=== PATIENT | female | born 1990 | race Caucasian/White ===

== ENCOUNTER 2016-08-21 18:08 | Emergency (ER) | payer SELFPAY ==
[~2016-08-21] VITALS: Ht 170.2 cm; Wt 68.3 kg
[~2016-08-21 18:08] MED LIST: ADVIN25/60 INH; ALBUAER2 INH; BUSP15TA70 PO; MONT1TAB3 PO; PXL20 PO; RMRS/45 PO
[2016-08-21 18:11] VITALS: TEMP 36.5; Ht 170.2 cm; Wt 68.3 kg
[2016-08-21] MEDS ORDERED: SODIUM CHLORIDE 0.9% 1000ML 2,000 ML IV STA (18:22)
[2016-08-21] MEDS ORDERED: ONDANSETRON INJ 2 MG/ML 2 ML VIAL IV STA (18:22)
[2016-08-21] MEDS ORDERED: OXYMETAZOLINE HCL 0.05% NA SPR 15 ML BTL NAE ONE (18:30)
--- NOTE | 2016-08-21 18:32 | EMERGENCY ROOM VISIT NOTE ---
History Report prepared by Daylin: Aurelia Marks Under the Supervision of: Dr. Carina Walker M.D. First contact with patient: 18:17 Chief Complaint: FLU LIKE SX Stated Complaint: HEAD COLD History of Present Illness The patient is a 26 year old female who presents to the Emergency Room with complaints of worsening flu-like symptoms that started two and a half weeks ago. She was unable to relieve her symptoms with Mucinex and Sudafed. The patient started experiencing sinus congestion first and then she started to experience nausea, vomiting, and diarrhea two days ago. She states that she hasn 't measured her temperature but she states that she has been feeling cold. She is also experiencing shortness of breath and states that she used her friend's breathing treatments because she ran out of her inhalers. The patient had multiple sick contacts recently. The patient's last normal menstrual period was in the end of June and she is unsure of if she is . She states that she took at-home tests but they were all inconclusive. Source of History: patient Onset: two and a half weeks ago Position: other (generalized) Quality: other (flu-like symptoms) Timing: worsening Associated Symptoms: + SOB, + chills, + diarrhea, + nausea, + vomiting Note: sinus congestion Review of Systems See HPI for pertinent positives & negatives. A total of 10 systems reviewed and were otherwise negative. Past Medical & Surgical Medical Problems: (1) Acute asthma exacerbation (2) Acute tracheobronchitis (3) Anemia due to blood loss (4) Asthma (5) Asthma exacerbation (6) Asthmatic bronchitis (7) Bronchitis (8) DRUG ABUSE NEC-UNSPEC (9) Endometritis following delivery (10) Fall (11) Gestational age, 21 weeks (12) Heroin overdose (13) Heroin overdose (14) Hypoxia (15) Ingested substance, unknown drug (16) Labor (17) Laryngitis (18) Odontalgia (19) Pain, dental (20) Pain, dental (21) (22) (23) , PREVIA, DISCHARGE (24) Second trimester bleeding (25) Threatened Surgical Problems: (1) Cholecystectomy (2) History of dilatation and curettage (3) History of wisdom tooth extraction Family History Cancer Diabetes mellitus FH: heart disease Hypertension Kidney disease Kidney stones Seizures Social History Smoking Status: Current Every Day Smoker Alcohol Use: none Drug Use: heroin, marijuana Marital Status: in relationship Housing Status: lives with significant other Occupation Status: employed Current/Historical Medications Scheduled Amoxicillin & Pot Clavulanate (Augmentin 875-125 mg), 875 MG PO BID Multiple Vitamins W/ Minerals (Womens One Daily), 1 TAB PO DAILY Quetiapine Fumarate (Seroquel), 1 TAB PO DAILY Scheduled PRN Pseudoephedrine Hcl (Sudafed), 60 MG PO UD PRN for Nasal Congestion Pseudoephedrine-Guaifenesin (Mucinex D), 1 TAB PO Q12 PRN for Cold/Sinus Symptoms Allergies Coded Allergies: BEE STING (Verified Allergy, Severe, SHORTNESS OF BREATH, 02/12/16) Cat Dander (Verified Allergy, Mild, ITCHY EYES, 02/12/16) Grass (Verified Allergy, Mild, RASH, 02/12/16) Molds and Smuts (Verified Allergy, Mild, RASH, 02/12/16) POLLEN (Verified Allergy, Mild, RASH, 02/12/16) Physical Exam Vital Signs Date Time Temp Pulse Resp B/P Pulse Ox O2 Delivery O2 Flow Rate FiO2 08/21/16 20:38 08/21/16 20:37 95 18 131/80 96 Room Air 08/21/16 18:11 36.5 124 18 125/76 98 Room Air Physical Exam Vital signs reviewed. General: Well-appearing female, in no significant distress. HEENT: No scleral icterus, PERRLA, neck supple. Atraumatic. Cardiovascular: Mildly tachycardic rate and regular rhythm, no extra sounds. Pulmonary: Clear to auscultation bilaterally, normal work of breathing. Abdomen: Soft, nontender, nondistended, positive bowel sounds. Musculoskeletal: Atraumatic, no peripheral edema. Neurologic: Patient awake alert and oriented x 3, full strength in all 4 extremities. Cranial nerves 2 through 12 grossly intact. Skin: Warm, dry, no rash Medical Decision & Procedures Laboratory Results 08/21/16 18:56 Red Blood Count 4.14, Mean Corpuscular Volume 91.5, Mean Corpuscular Hemoglobin 30.4, Mean Corpuscular Hemoglobin Concent 33.2, Mean Platelet Volume 11.4, Neutrophils (%) (Auto) 33.8, Lymphocytes (%) (Auto) 48.1, Monocytes (%) (Auto) 14.2, Eosinophils (%) (Auto) 3.1, Basophils (%) (Auto) 0.6, Neutrophils # (Auto ) 2.16, Lymphocytes # (Auto) 3.08, Monocytes # (Auto) 0.91, Eosinophils # (Auto ) 0.20, Basophils # (Auto) 0.04 08/21/16 18:56 Test 08/21/16 18:56 White Blood Count 6.40 K/uL (4.8-10.8) Red Blood Count 4.14 M/uL (4.2-5.4) Hemoglobin 12.6 g/dL (12.0-16.0) Hematocrit 37.9 % (37-47) Mean Corpuscular Volume 91.5 fL (80-100) Mean Corpuscular Hemoglobin 30.4 pg (25-34) Mean Corpuscular Hemoglobin Concent 33.2 g/dl (32-36) Platelet Count 287 K/uL (130-400) Mean Platelet Volume 11.4 fL (7.4-10.4) Neutrophils (%) (Auto) 33.8 % Lymphocytes (%) (Auto) 48.1 % Monocytes (%) (Auto) 14.2 % Eosinophils (%) (Auto) 3.1 % Basophils (%) (Auto) 0.6 % Neutrophils # (Auto) 2.16 K/uL (1.4-6.5) Lymphocytes # (Auto) 3.08 K/uL (1.2-3.4) Monocytes # (Auto) 0.91 K/uL (0.11-0.59) Eosinophils # (Auto) 0.20 K/uL (0-0.5) Basophils # (Auto) 0.04 K/uL (0-0.2) RDW Standard Deviation 44.9 fL (36.4-46.3) RDW Coefficient of Variation 13.5 % (11.5-14.5) Immature Granulocyte % (Auto) 0.2 % Immature Granulocyte # (Auto) 0.01 K/uL (0.00-0.02) Urine Color YELLOW Urine Appearance CLOUDY (CLEAR) Urine pH >= 9.0 (4.5-7.5) Urine Specific [place] 1.026 (1.000-1.030) Urine Protein NEG (NEG) Urine Glucose (UA) NEG (NEG) Urine Ketones NEG (NEG) Urine Occult Blood NEG (NEG) Urine Nitrite NEG (NEG) Urine Bilirubin NEG (NEG) Urine Urobilinogen NEG (NEG) Urine Leukocyte Esterase TRACE (NEG) Urine WBC (Auto) 5-10 /hpf (0-5) Urine RBC (Auto) 0-4 /hpf (0-4) Urine Hyaline Casts (Auto) 1-5 /lpf (0-5) Urine Epithelial Cells (Auto) >30 /lpf (0-5) Urine Bacteria (Auto) 1+ (NEG) Urine Renal Epithelial Cells 5-10 /lpf (0-5) Anion Gap 10.0 mmol/L (3-11) Est Creatinine Clear Calc Drug Dose 105.4 ml/min Estimated GFR () 120.8 Estimated GFR (Non- 104.2 BUN/Creatinine Ratio 14.9 (10-20) Calcium Level 8.5 mg/dl (8.5-10.1) Magnesium Level 2.1 mg/dl (1.8-2.4) Total Bilirubin < 0.1 mg/dl (0.2-1) Direct Bilirubin < 0.1 mg/dl (0-0.2) Aspartate Amino Transf (AST/SGOT) 25 U/L (15-37) Alanine Aminotransferase (ALT/SGPT) 37 U/L (12-78) Alkaline Phosphatase 74 U/L (45-117) Total Protein 6.8 gm/dl (6.4-8.2) Albumin 3.4 gm/dl (3.4-5.0) Human Chorionic Gonadotropin, Qual NEG (NEG) Date/Time Source Procedure Growth Status 08/21/16 18:56 Urine , Clean Catch Urine Culture - Final THREE TYPES OF ORGANSIMS PRESENT, ALL... Complete Laboratory results per my review. Medications Administered Medications (Trade) Dose Ordered Sig/Irving Route Start Time Stop Time Status Last Admin Dose Admin Sodium Chloride (Nss 1000ml) 2,000 ml @ 999 mls/hr Q2H1M STAT IV 08/21/16 18:22 08/21/16 20:22 DC 08/21/16 19:06 999 MLS/HR Oxymetazoline HCl (Afrin 0.05% Nasal Amigo) 2 sprays NOW ONCE BLAISE 08/21/16 18:30 08/21/16 18:31 DC 08/21/16 19:03 2 SPRAYS Ondansetron HCl (Zofran Inj) 4 mg NOW STAT IV 08/21/16 18:22 08/21/16 18:24 DC 08/21/16 19:04 4 MG Amoxicillin/ Clavulanate Potassium (Augmentin Tab) 875 mg ONE ONCE PO 08/21/16 20:15 08/21/16 20:16 DC 08/21/16 20:30 875 MG Ondansetron HCl (ZOFRAN ODT 4MG Home Pack) 1 homepack UD ONCE PO 08/21/16 20:15 08/21/16 20:16 DC 08/21/16 20:30 1 HOMEPACK ED Course 1820: Past medical records reviewed. The patient was evaluated in room B6. A complete history and physical examination was performed. 1821: Ordered Zofran 4 mg IV, Sodium Chloride 2000 ml @ 999 mls/hr IV 1830: Ordered Oxymetazoline HCl 2 sprays BLAISE 2004: Upon reevaluation, the patient appeared to have improvement of her symptoms. I discussed findings with her. She verbalized agreement of the treatment plan. She was discharged home. 2015: Ordered Ondansetron HCl 1 homepack PO, Augmentin Tab 875 mg PO Medical Decision The patient is a 26 year old female who presents to the Emergency Room with complaints of worsening flu-like symptoms that started two and a half weeks ago. Differentials include viral illness, dehydration, sinusitis, foodborne illness, . This patient was evaluated and appeared to be in no significant distress. IV access was obtained and laboratory work was drawn. The patient was hydrated with normal saline solution, given IV Zofran for nausea. Patient was given Afrin nasal spray for congestion. Laboratory work is fairly unrevealing. Patient's test is negative. On reevaluation, the patient is complaining of sinus pressure. She was encouraged to use Afrin as needed for congestion. She was started on Augmentin 10 days for sinusitis. Patient will follow-up with her primary care physician this week for reevaluation return to the ER for worsening of symptoms or any medical concerns. Impression Primary Impression: Sinusitis Additional Impression: Nausea and vomiting Scribe Attestation The scribe's documentation has been prepared under my direction and personally reviewed by me in its entirety. I confirm that the note above accurately reflects all work, treatment, procedures, and medical decision making performed by me. Departure Information Dispostion Home / Self-Care Prescriptions Amoxicillin & Pot Clavulanate (Augmentin 875-125 mg) 1 Tab Tab 875 MG PO BID for 10 Days, #20 TAB Prov: Carina Walker M.D. 08/21/16 Referrals No Doctor, Assigned (PCP) Forms HOME CARE DOCUMENTATION FORM, IMPORTANT VISIT INFORMATION Patient Instructions My [facility] Additional Instructions Diagnosis: Sinusitis, nausea and vomiting Zofran 4 mg ODT every 6 hours as needed for nausea. Augmentin 875 mg twice daily for 10 days. Drink plenty of clear fluids. Advance diet slowly as tolerated. Follow-up with your physician this week for reevaluation and return to the ER for worsening of symptoms or any medical concerns. Problem Qualifiers Primary Impression: Sinusitis Sinusitis location: maxillary Chronicity: acute Recurrence: non-recurrent Qualified Codes: J01.00 - Acute maxillary sinusitis, unspecified Additional Impression: Nausea and vomiting Vomiting type: unspecified Vomiting Intractability: non-intractable Qualified Codes: R11.2 - Nausea with vomiting, unspecified
[2016-08-21 19:12] LABS: BASO % 0.6 %; BASO ABS # 0.04 K/uL (0-0.2); COMPLETE YES; EOS % 3.1 %; HEMATOCRIT 37.9 % (37-47); IG% 0.2 %; LYMPH % 48.1 %; LYMPH ABS # 3.08 K/uL (1.2-3.4); MEAN CELL VOLUME 91.5 fL (80-100); MEAN CORPUSCULAR HEMOGLOBIN 30.4 pg (25-34); MEAN CORPUSCULAR HGB CONC 33.2 g/dl (32-36); MEAN PLATELET VOLUME 11.4 fL (7.4-10.4); MONO % 14.2 %; NEUT % 33.8 %; PLATELET COUNT 287 K/uL (130-400); RED BLOOD COUNT 4.14 M/uL (4.2-5.4)
[2016-08-21 19:25] LABS: URINE APPEARANCE CLOUDY (CLEAR); URINE BILIRUBIN NEG (NEG); URINE COLOR YELLOW; URINE EPITHELIAL CELL AUTO >30 /lpf (0-5); URINE NITRITE NEG (NEG); URINE PH >= 9.0 (4.5-7.5); URINE SPECIFIC GRAVITY 1.026 (1.000-1.030); UROBILINOGEN NEG (NEG); ZZUR CULT IF INDIC CLEAN CATCH YES
[2016-08-21 19:26] LABS: MANUAL MICROSCOPIC REQUIRED? NO; REVIEW REQ? YES
[2016-08-21 19:28] LABS: BLOOD UREA NITROGEN 12 mg/dl (7-18); GLUCOSE 95 mg/dl (70-99); SULFASALICYLIC ACID NEG (NEG)
[2016-08-21 19:29] LABS: ALT/SGPT 37 U/L (12-78); BUN/CREATININE RATIO 14.9 (10-20); CALCIUM 8.5 mg/dl (8.5-10.1); CARBON DIOXIDE 29 mmol/L (21-32); CHLORIDE 103 mmol/L (98-107); CREATININE 0.78 mg/dl (0.60-1.20); MAGNESIUM 2.1 mg/dl (1.8-2.4); POTASSIUM 3.3 mmol/L (3.5-5.1); SODIUM 142 mmol/L (136-145)
[2016-08-21 19:30] LABS: PREG INTERNAL NEGATIVE QC NEG CLEAR BACKGROUND; PREG INTERNAL POSITIVE QC POS CONTROL LINE
[2016-08-21 19:31] LABS: ALKALINE PHOSPHATASE 74 U/L (45-117); AST/SGOT 25 U/L (15-37)
[2016-08-21] MEDS ORDERED: PSEU1TAB2 PO (19:58)
[2016-08-21] MEDS ORDERED: MULT-240 PO (19:58)
[2016-08-21] MEDS ORDERED: PSEU60TA80 PO (19:58)
[2016-08-21] MEDS ORDERED: QUET1TAB34 PO (19:58)
[2016-08-21] MEDS ORDERED: AMOX875T PO (20:10)
[2016-08-21] MEDS ORDERED: AMOXICILLIN/CLAVULANATE TAB 875 MG TAB PO ONE (20:15)
[2016-08-21] MEDS ORDERED: ONDANSETRON HOME PACK 4MG OD TAB PO ONE (20:15)
[2016-08-21 20:37] VITALS: BP 131/80; PULSE 95; O2SAT 96
== END 2016-08-21 20:36 | disposition home or self-care (01) ==
LOC: C.EDB 18:11
DX: J01.00 Acute maxillary sinusitis, unspecified (principal); R11.2 Nausea with vomiting, unspecified; J45.909 Unspecified asthma, uncomplicated; Z91.81 History of falling; F17.200 Nicotine dependence, unspecified, uncomplicated; Z90.49 Acquired absence of other specified parts of digestive tract; Z98.818 Other dental procedure status; Z98.890 Other specified postprocedural states; Z83.3 Family history of diabetes mellitus; Z82.49 Family history of ischemic heart disease and other diseases of the circulatory system; Z84.1 Family history of disorders of kidney and ureter; Z82.0 Family history of epilepsy and other diseases of the nervous system

== ENCOUNTER 2016-08-24 18:41 | Emergency (ER) | payer SELFPAY ==
[~2016-08-24] VITALS: Ht 170.2 cm; Wt 68.0 kg
[~2016-08-24 18:41] MED LIST changes: -ADVIN25/60 INH; -ALBUAER2 INH; +AMOX875T PO; -BUSP15TA70 PO; -MONT1TAB3 PO; +MULT-240 PO; +PSEU1TAB2 PO; +PSEU60TA80 PO; -PXL20 PO; +QUET1TAB34 PO; -RMRS/45 PO
[2016-08-24 18:46] VITALS: TEMP 36.8; Ht 170.2 cm; Wt 68.0 kg
[2016-08-24] MEDS ORDERED: CLON2TAB3 PO (18:53)
--- NOTE | 2016-08-24 19:16 | EMERGENCY ROOM VISIT NOTE ---
History Report prepared by Daylin: Angie Blum Under the Supervision of: Dr. Carina Walker M.D. First contact with patient: 18:53 Chief Complaint: OVERDOSE (INTENTIONAL) Stated Complaint: OVERDOSE History of Present Illness The patient is a 26 year old female who presents to the Emergency Room with complaints of an intentional overdose occurring shortly [employer]. The patient states that she tried to use crystal meth today in the [facility] bathroom and then realized that it was actually heroin. She states that she does not remember leaving the bathroom stall. The patient states that she was found facedown in the bathroom. EMS was called and pt was given narcan at the scene with good response. The patient states that the last time she used drugs was 4-5 days ago. She states she sometimes snorts her drugs but today she was injecting her drugs. She denies being in any pain currently. Source of History: patient Onset: shortly TI[employer] Position: other (global) Note: Patient denies being in any pain. Review of Systems See HPI for pertinent positives & negatives. A total of 10 systems reviewed and were otherwise negative. Past Medical & Surgical Medical Problems: (1) Acute asthma exacerbation (2) Acute tracheobronchitis (3) Anemia due to blood loss (4) Asthma (5) Asthma exacerbation (6) Asthmatic bronchitis (7) Bronchitis (8) DRUG ABUSE NEC-UNSPEC (9) Endometritis following delivery (10) Fall (11) Gestational age, 21 weeks (12) Heroin overdose (13) Heroin overdose (14) Hypoxia (15) Ingested substance, unknown drug (16) Labor (17) Laryngitis (18) Odontalgia (19) Pain, dental (20) Pain, dental (21) (22) (23) , PREVIA, DISCHARGE (24) Second trimester bleeding (25) Threatened Surgical Problems: (1) Cholecystectomy (2) History of dilatation and curettage (3) History of wisdom tooth extraction Family History Cancer Diabetes mellitus FH: heart disease Hypertension Kidney disease Kidney stones Seizures Social History Smoking Status: Current Every Day Smoker Alcohol Use: none Drug Use: heroin, marijuana Marital Status: in relationship Housing Status: lives with significant other Occupation Status: unemployed Current/Historical Medications Scheduled Amoxicillin & Pot Clavulanate (Augmentin 875-125 mg), 875 MG PO BID Clonazepam (Klonopin), 2 MG PO DIRECTED Multiple Vitamins W/ Minerals (Womens One Daily), 1 TAB PO DAILY Quetiapine Fumarate (Seroquel), 1 TAB PO DAILY Scheduled PRN Pseudoephedrine Hcl (Sudafed), 60 MG PO UD PRN for Nasal Congestion Allergies Coded Allergies: BEE STING (Verified Allergy, Severe, SHORTNESS OF BREATH, 08/24/16) Cat Dander (Verified Allergy, Mild, ITCHY EYES, 08/24/16) Grass (Verified Allergy, Mild, RASH, 08/24/16) Molds and Smuts (Verified Allergy, Mild, RASH, 08/24/16) POLLEN (Verified Allergy, Mild, RASH, 08/24/16) Physical Exam Vital Signs Date Time Temp Pulse Resp B/P Pulse Ox O2 Delivery O2 Flow Rate FiO2 08/24/16 20:15 111 18 129/79 99 Room Air 08/24/16 18:46 36.8 103 16 133/85 98 Room Air Physical Exam Vital signs reviewed. General: Disheveled appearing female at the bedside, anxious and answering question appropriately but seemingly intoxicated. tearful soaked in urine. HEENT: No scleral icterus, PERRLA, neck supple. Atraumatic. Cardiovascular: Regular rate and rhythm, no extra sounds. Pulmonary: Clear to auscultation bilaterally, normal work of breathing. Abdomen: Soft, nontender, nondistended, positive bowel sounds. Musculoskeletal: Atraumatic, no peripheral edema. Neurologic: Patient awake alert and oriented x 3, full strength in all 4 extremities. Cranial nerves 2 through 12 grossly intact. Pacing at the bedside Skin: Warm, dry, no rash Medical Decision & Procedures ED Course 1852: Past medical records reviewed. The patient was evaluated in room C6. A complete history and physical examination was performed. 2007: the patient's sober ride arrived to take the patient home. Medical Decision The patient is a 26 year old female who presents to the ED with complaints of intentional overdose. Differentials include illicit substance abuse, medication o/d, metabolic abnl, infectious etiology, ICM, ICH This pt was evaluated and appeared to be anxious and pacing. She states that she was on her way to "graduate" from a mandated drug "class" this evening. She apparently "tested hot" for her executive officer earlier in the week and decided to "get fucked up" as it didn't matter anymore. Pt states she has 2 boys, but doesn't have custody of them. She would like to go home, doesn't want any more intervention. As the pt is awake and alert, ambulating without difficulty, she was observed for 1.5 hours in the ED until a sober ride was available. Pt was d/c to f/u with [facility] D[facility] and to return to the ED for worsening of symptoms or any medical concerns. Impression Primary Impression: Heroin overdose Scribe Attestation The scribe's documentation has been prepared under my direction and personally reviewed by me in its entirety. I confirm that the note above accurately reflects all work, treatment, procedures, and medical decision making performed by me. Departure Information Dispostion Home / Self-Care Referrals No Doctor, Assigned (PCP) Forms HOME CARE DOCUMENTATION FORM, IMPORTANT VISIT INFORMATION, WORK / SCHOOL INSTRUCTIONS Patient Instructions My [facility] Additional Instructions Diagnosis: Heroin overdose You have declined any medical intervention today. Avoid use of illicit substances. Follow-up with your physician this week for reevaluation. Contact [facility] drugs and alcohol for assistance. The phone numbers are : and . Also, the After-Hours Crisis Number remains the same at: Return to the emergency department for worsening of symptoms or any medical concerns.
[2016-08-24 20:15] VITALS: BP 129/79; PULSE 111; O2SAT 99
== END 2016-08-24 20:16 | disposition home or self-care (01) ==
LOC: C.EDC 18:41 → EDBD 18:41 → C.EDC 20:16
DX: T40.1X2A Poisoning by heroin, intentional self-harm, initial encounter (principal); F17.200 Nicotine dependence, unspecified, uncomplicated; Z83.3 Family history of diabetes mellitus; Z82.49 Family history of ischemic heart disease and other diseases of the circulatory system; Z84.1 Family history of disorders of kidney and ureter; Z82.0 Family history of epilepsy and other diseases of the nervous system

== ENCOUNTER 2019-07-04 03:51 | Inpatient (IN) ==
[2019-07-04] MEDS ORDERED: OXYTOCIN 30 UNITS/500 ML BAG IV PRN (04:30)
[2019-07-04] MEDS ORDERED: LACTATED RINGER'S 1,000 ML IV PRN (04:30)
--- NOTE | 2019-07-04 04:35 | History & Physical Report ---
Date of Service July 04, 2019 Patient presented to labor and delivery with rupture of membranes which occurred approximately 1 hour ago this was a clear gush of fluid that was slightly blood- tinged and contractions have started to increase as well. Her has been uncomplicated she is group B strep negative she does have a past history of substance abuse she is at term Assessment & Plan (1) Supervision of normal intrauterine in multigravida: Admit wishes epidural drug screen History of Present Illness Primary Care Provider: Michael Esqueda, Allergies Allergy/AdvReac Type Severity Reaction Status Date / Time bee venom protein (honey bee) Allergy Severe SHORTNESS Verified 06/29/19 09:22 OF BREATH cat dander Allergy Mild ITCHY EYES Verified 06/29/19 09:22 grass pollen-perennial rye, Allergy Mild RASH Verified 06/29/19 09:22 standar mold Allergy Mild RASH Verified 06/29/19 09:22 pollen extracts Allergy Mild RASH Verified 06/29/19 09:22 dog dander Allergy Verified 06/29/19 09:22 No Known Drug Allergies Allergy Verified 06/29/19 09:22 Home Medications Home Medications Medication Instructions Recorded Confirmed Type prenat.vits,beatriz,fjt-vtam-bzzvp 1 tab PO DAILY 03/08/19 06/29/19 History diphenhydramine HCl PO 03/22/19 06/29/19 History albuterol sulfate INHALATION 06/22/19 06/29/19 History [id number]-[id number] PO 06/29/19 06/29/19 History Patient History Medical History (Updated 04/13/19 @ 10:10 by Jeffery Rogers Jr, MD, FACOG) Asthma History of drug overdose Heroin 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 , currently History of group B Streptococcus (GBS) infection History of heroin abuse History of placenta previa History of spontaneous Surgical History (Updated 03/14/19 @ 11:09 by Irina Hernandez) S/P cholecystectomy S/P wisdom tooth extraction Family History (Updated 03/14/19 @ 11:10 by Irina Hernandez) Grandmother (Maternal) Breast cancer Aunt Ovarian cancer maternal Other Diabetes Heart disease Hypertension Social History (Updated 03/14/19 @ 11:11 by Irina Hernandez) Preferred Language: Italian Feels Safe at Home: Yes Smoking Status: Current every day smoker Physical Exam Constitutional: WD/WN, vitals as above Genitourinary: Manual OB Exam: + cervical dilation 4 cm, + cervical effacement 80%, + station -1 and + amniotic fluid (pos) Results & Data Vital Signs (Past 12 Hours) Vital Signs Pulse BP 07/04/19 04:20 102 H 123/83
[2019-07-04 05:00] LABS: Hematocrit (blood only) 36.3 % (37-47); Hemoglobin 12.3 g/dL (12.0-16.0); Mean Corpuscular Hemoglobin 30.7 pg (25-34); Mean Corpuscular Volume 90.5 fL (80-100); Mean Platelet Volume 11.9 fL (7.4-10.4); Platelet Count 369 K/uL (130-400); RDW Coefficient of Variation 12.9 % (11.5-14.5); RDW Standard Deviation 42.4 fL (36.4-46.3); Red Blood Count 4.01 M/uL (4.2-5.4); White Blood Count 13.59 K/uL (4.8-10.8)
[2019-07-04 05:08] LABS: Mean Corpuscular Hgb Conc 33.9 g/dL (32-36)
[2019-07-04] MEDS ORDERED: fentaNYL citrate 100 MCG/2 ML VIAL ONE (05:47)
[2019-07-04] MEDS ORDERED: BUPIVACAINE 0.25% 30 ML VIAL ONE (05:47)
[2019-07-04] MEDS ORDERED: ePHEDrine sulfate 50 MG/ML AMP ONE (05:47)
[2019-07-04] MEDS ORDERED: fentaNYL 2MCG/ML ROPIV 1.25MG/ML 100 ML BAG EPI ONE (05:48)
[2019-07-04 06:19] LABS: Amphetamines+Metham, Urine Neg (Neg); Barbiturates, Urine Neg (Neg); Benzodiazepine, Urine Neg (Neg); Cocaine, Urine Neg (Neg); MDMA (Ecstacy), Urine Neg (Neg); Methadone, Urine Neg (Neg); Opiate, Urine Neg (Neg); Phencyclidine, Urine Neg (Neg)
[2019-07-04] MEDS ORDERED: NALOXONE HCL 0.4 MG/1 ML VIAL/CARP IV PRN (06:36)
[2019-07-04] MEDS ORDERED: NALBUPHINE HCL INJ 10 MG/ML AMP IV PRN (06:36)
[2019-07-04] MEDS ORDERED: fentaNYL 2MCG/ML ROPIV 1.25MG/ML 100 ML BAG EPI PRN (06:36)
[2019-07-04] MEDS ORDERED: NALOXONE HCL 1 MG in SODIUM CHLORIDE 0.9% 1000ML 1,000 ML IV PRN (06:36)
[2019-07-04] MEDS ORDERED: PROMETHAZINE HCL 6.25 MG in SODIUM CHLORIDE 0.9% 50 ML IV PRN (06:36)
[2019-07-04] MEDS ORDERED: DiphenhydrAMINE HCL 50 MG/ML VIAL IV PRN (06:36)
[2019-07-04] MEDS ORDERED: ePHEDrine sulfate 50 MG/ML AMP IV PRN (06:36)
[2019-07-04] MEDS ORDERED: ONDANSETRON INJ 2 MG/ML 2 ML VIAL IV PRN (06:36)
--- NOTE | 2019-07-04 06:40 | Anesthesiology Consultation ---
Date of Service July 04, 2019 Assessment & Plan (1) Encounter for pre-operative examination: Chart Review Chart Review: Patient NOT seen in Pre Admission Testing and Acceptable Risk for Labor Epidural Consults Requested none ASA ASA2 Proposed Anesthesia Anesthesia Type: Labor Epidural Risk / Benefits Reviewed With: PT / POA / Parent / Guardian, Accepts Plan and Informed Consent Obtained History Height/Weight Height: 5 ft 7 in Weight: 86.275 kg Allergies Allergy/AdvReac Type Severity Reaction Status Date / Time bee venom protein (honey bee) Allergy Severe SHORTNESS Verified 07/04/19 04:50 OF BREATH cat dander Allergy Mild ITCHY EYES Verified 07/04/19 04:50 grass pollen-perennial rye, Allergy Mild RASH Verified 07/04/19 04:50 standar mold Allergy Mild RASH Verified 07/04/19 04:50 pollen extracts Allergy Mild RASH Verified 07/04/19 04:50 dog dander Allergy Rash Verified 07/04/19 04:50 No Known Drug Allergies Allergy Unknown Verified 07/04/19 04:50 Medications Home Medications Medication Instructions Recorded Confirmed Last Taken prenat.vits,beatriz,zis-rdka-cdwpd 1 tab PO DAILY 03/08/19 07/04/19 07/03/19 08:00 diphenhydramine HCl 1 cap PO DIRECTED 03/22/19 07/04/19 07/03/19 08:00 albuterol sulfate 1 puff INHALATION DIRECTED 06/22/19 07/04/19 06/30/19 nvtxlttlqjbrc-DS-kzlxyskhwbngv 2 tab PO DIRECTED 06/29/19 07/04/19 07/03/19 20:00 Active Medications Generic Name Dose Route Start Last Admin Trade Name Freq PRN Reason Stop Dose Admin Lactated Ringer's 1,000 mls @ 125 mls/hr 07/04/19 04:30 07/04/19 05:42 Lr IV 07/06/19 04:29 125 mls/hr .Q8H PRN Administration L&D Protocol Protocol NPO Date Last Intake of Fluids: 07/04/19 Time Last Intake of Fluids: 04:00 Date Last Intake of Solids: 07/03/19 Time Last Intake of Solids: 20:00 Past Medical History Medical History Asthma History of drug overdose Heroin 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 , currently History of group B Streptococcus (GBS) infection History of heroin abuse History of placenta previa History of spontaneous Exercise / Class Metabolic Activity II 4-5 Yardwork/Stairs/Walk up hill Past Family History Family History Grandmother (Maternal) Breast cancer Aunt Ovarian cancer maternal Other Diabetes Heart disease Hypertension Past Surgical History Surgical History S/P cholecystectomy S/P wisdom tooth extraction Past Anesthesia History No Hx of Anesthesia Complications and No Family Hx of Anesthesia Complications History of PONV No Hx of PONV and No Hx of Motion Sickness Social History Smoking Status: Current every day smoker tobacco type: cigarettes Smoking cigarettes per day: 1 or 2 sticks Hx Alcohol Use: No Hx Substance Use: Yes substance use type: former substance user Last Used Substance Other:: Patient states, has being clean for two years. Physical Exam Vital Signs Last Vital Signs Temp 36.6 C 07/04/19 06:00 Pulse 79 07/04/19 06:34 Resp 16 07/04/19 06:04 BP 114/64 07/04/19 06:28 Pulse Ox 99 07/04/19 06:34 ENMT Mouth: + dentures (upper plate) Thyromental Distance: > or= 3.5 Finger Breadths Mallampati Class: II Neck normal visual inspection Respiratory normal respiratory effort Auscultation: lungs clear to auscultation bilaterally Cardiovascular Rate/Rhythm: regular rate and regular rhythm Psychiatric Orientation: alert Testing Laboratory Results 07/04/19 04:36
--- NOTE | 2019-07-04 07:53 | Obstetrical Progress Note ---
Date of Service Cx now 5cm, bulging forebag, AROM performed, meconium stained FHR category 1 July 04, 2019 Results & Data Vital Signs (Past 12 Hours) Vital Signs Temp Pulse Resp BP Pulse Ox 07/04/19 07:49 78 100 07/04/19 07:44 77 99 07/04/19 07:42 66 113/64 07/04/19 07:39 76 99 07/04/19 07:34 70 98 07/04/19 07:29 72 100 07/04/19 07:27 76 114/58 L 07/04/19 07:24 75 99 07/04/19 07:19 77 99 07/04/19 07:16 71 120/62 07/04/19 07:14 79 99 07/04/19 07:09 122 H 97 07/04/19 07:07 20 07/04/19 07:04 90 98 07/04/19 06:59 95 H 100 07/04/19 06:57 90 114/74 07/04/19 06:56 97.9 F 18 07/04/19 06:54 90 99 07/04/19 06:49 88 99 07/04/19 06:44 86 100 07/04/19 06:43 83 123/66 07/04/19 06:39 89 98 07/04/19 06:34 79 99 07/04/19 06:29 94 H 99 07/04/19 06:28 86 114/64 07/04/19 06:24 92 H 99 07/04/19 06:19 78 97 07/04/19 06:15 18 07/04/19 06:14 89 99 07/04/19 06:11 90 123/68 07/04/19 06:09 93 H 127/68 97 07/04/19 06:07 81 134/66 07/04/19 06:05 90 132/76 07/04/19 06:04 84 16 99 07/04/19 06:03 81 130/78 07/04/19 06:01 93 H 128/73 07/04/19 06:00 97.9 F 07/04/19 05:59 83 131/76 98 07/04/19 05:54 79 98 07/04/19 05:49 88 98 07/04/19 04:51 97.9 F 102 H 18 123/83 07/04/19 04:20 102 H 123/83 PG Care Time/CCT Total # of Minutes Spent Total Time Spent with Patient: Total time spent is greater than 50% in coordination of care (as documented) at patient's floor/unit and/or counseling patient:
--- NOTE | 2019-07-04 08:54 | Labor Progress Brief Note ---
Date of Service July 04, 2019 Subjective Reason For Note: Routine Evaluation Comfortable with Epidural Assessment & Plan (1) Supervision of normal intrauterine in multigravida: Admitted in labor, epidural established, and I have met and assumed care of the patient this morning. She is progressing well. BP noted; anticipate delivery soon. Physical Exam Genitourinary: Manual OB Exam: + cervical dilation (8 per RN), + cervical effacement (per RN) and + station (per RN) OB Exam Monitor Tracing: + external FHT monitor used and + category I Results & Data Vital Signs (Past 12 Hours) Vital Signs Temp Pulse Resp BP Pulse Ox 07/04/19 08:49 101 H 97 07/04/19 08:44 105 H 96 07/04/19 08:43 99 H 140/94 07/04/19 08:39 80 96 07/04/19 08:35 97.5 F L 20 07/04/19 08:34 87 98 07/04/19 08:29 84 96 07/04/19 08:27 71 123/80 07/04/19 08:24 79 99 07/04/19 08:20 20 07/04/19 08:19 84 99 07/04/19 08:14 77 98 07/04/19 08:12 75 120/72 07/04/19 08:09 76 99 07/04/19 08:05 20 07/04/19 08:04 75 99 07/04/19 07:59 73 99 07/04/19 07:57 67 114/67 07/04/19 07:54 67 99 07/04/19 07:50 20 07/04/19 07:49 78 100 07/04/19 07:44 77 99 07/04/19 07:42 66 113/64 07/04/19 07:39 76 99 07/04/19 07:35 20 07/04/19 07:34 70 98 07/04/19 07:29 72 100 07/04/19 07:27 76 114/58 L 07/04/19 07:24 75 99 07/04/19 07:20 20 07/04/19 07:19 77 99 07/04/19 07:16 71 120/62 07/04/19 07:14 79 99 07/04/19 07:09 122 H 97 07/04/19 07:07 97.5 F L 20 07/04/19 07:04 90 98 07/04/19 06:59 95 H 100 07/04/19 06:57 90 114/74 07/04/19 06:56 97.9 F 18 07/04/19 06:54 90 99 07/04/19 06:49 88 99 07/04/19 06:44 86 100 07/04/19 06:43 83 123/66 07/04/19 06:39 89 98 07/04/19 06:34 79 99 07/04/19 06:29 94 H 99 07/04/19 06:28 86 114/64 07/04/19 06:24 92 H 99 07/04/19 06:19 78 97 07/04/19 06:15 18 07/04/19 06:14 89 99 07/04/19 06:11 90 123/68 07/04/19 06:09 93 H 127/68 97 07/04/19 06:07 81 134/66 07/04/19 06:05 90 132/76 07/04/19 06:04 84 16 99 07/04/19 06:03 81 130/78 07/04/19 06:01 93 H 128/73 07/04/19 06:00 97.9 F 07/04/19 05:59 83 131/76 98 07/04/19 05:54 79 98 07/04/19 05:49 88 98 07/04/19 04:51 97.9 F 102 H 18 123/83 07/04/19 04:20 102 H 123/83
[2019-07-04] MEDS ORDERED: HYDROCORTISONE ACETATE 25 MG SUPP PR PRN (09:38)
[2019-07-04] MEDS ORDERED: SUPERCREAM 0.870% 15 GM JAR EXT PRN (09:38)
[2019-07-04] MEDS ORDERED: BENZOCAINE 20% AER SPR 82.5 GM CAN EXT PRN (09:38)
[2019-07-04] MEDS ORDERED: ACETAMINOPHEN 325 MG TAB PO PRN (09:38)
[2019-07-04] MEDS ORDERED: OXYCODONE/ACETAMINOPHEN 5mg/325mg TAB PO PRN (09:38)
[2019-07-04] MEDS ORDERED: DIPHTHERIA/TETANUS/PERTUSSIS 0.5 ML SYR/VIAL IM ONE (09:38)
--- NOTE | 2019-07-04 09:42 | Delivery Summary ---
Vaginal Delivery Summary Date of Service July 04, 2019 Vaginal Delivery Summary DIAGNOSES: 1. Ellison intrauterine at 39w2d gestation. 2. Spontaneous onset of labor. 3. Group B Streptococcus Neg. PROCEDURE: Spontaneous vaginal delivery. SURGEON: Hanh Sanchez MD. MASTIC SPRAYER: None. ESTIMATED BLOOD LOSS: 300 mL. COMPLICATIONS: None. PLACENTA: Spontaneous and intact with a hypocoiled 3-vessel cord and meconium stain. DISPOSITION: Stable to labor and delivery. DESCRIPTION: The patient pushed well and brought the head to in OA position. The infant's head was allowed to deliver with contraction force and no further active pushing, with the perineum protected during this time. The shoulders delivered easily with a maternal pushing effort. There was a tight nuchal cord reduced at the perineum. The left shoulder was anterior. The shoulders and body delivered without any difficulty, and the was placed on the maternal abdomen. It was vigorous and moving all extremities, but was breath-holding, so it was moved to the warmer for Dr. Solis's attention. The cord was doubly clamped by the and then cut by the FOB. The placenta delivered spontaneously and was noted to be intact and with a 3VC. The cervix, vagina and perineum were examined and were found to be without defect requiring repair. The fundus was firm and lochia minimal immediately after delivery.
[2019-07-04] MEDS ORDERED: LACTATED RINGER'S 1,000 ML IV SCH (09:45)
--- NOTE | 2019-07-04 09:49 | Medical Student Report ---
Date of Service July 04, 2019 Delivery Note [place] Information Date of : [birth year] Time of : 09:23 Weight: 3.374 kg Length (inches): 20 ft Sex: M Race: White Attendance at Delivery [employer] Salesperson at Delivery: Ruthy Solis Method of Delivery Type of Delivery: Gestational Age Gestational Age (weeks): 39 Mother's Information Family History: + pertinent history of (substance use disorder; toxicology screen negative at admission) Blood Type: A+ : 4 Para: 3 (2011) Group B Strep Status: Negative Rubella Status: Immune HbSAg: negative HIV: negative Chlamydia: negative Gonorrhea: negative Anesthesia: Labor Epidural Additional Comments: Manuela is a 29 year-old female at 39 weeks 2 days with an MAURICIO of 07/13/19 per LMP who presented to labor and delivery today with ROM at 3:30AM. She was at this time 4cm dilated, 80% effaced, and at -1 station. Her course was largely unremarkable. She has a history of substance use (heroin); however, her toxicology screens in November and on current admission were negative. She is blood type A+, antibody negative, rubella immune, Hep B negative, GBS negative, and had a normal glucola test. 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 FOB reports that he is CF negative but his SMA status is unknown. Epidural administered by anesthesiology. AROM performed for bulging forebag at approximately 7:30AM. At this time, patient was 5cm dilated. Labor progressed rapidly from this point. Patient pushed for approximately 15 minutes. Fetus was in the the left occiput anterior position. Perineal pressure was applied and nuchal cord was reduced at the perineum. A viable male was delivered and no peritoneal lacerations were noted. Cord was clamped and then cut by the FOB. Cord blood sample was collected. Placenta was delivered spontaneously and sent for routine pathology. It was found to be intact with all 3 vessels present. Perineum was intact and the fundus was found to be firm. Sponge and needle count was confirmed and estimated blood loss was 300 mL. Delivery Care Resuscitation Comment: Assisted ventilation required Scoring score (1 min): 6 score (5 min): unknown (decreased; value not determined) score (10 min): 8
[2019-07-04] MEDS ORDERED: ALBUTEROL HFA 8 GM INHALER INH PRN (10:08)
--- NOTE | 2019-07-04 10:12 | Anesthesia Procedure Note ---
Date of Service July 04, 2019 Anesthesia Post Epidural Note Vital Signs Vital Signs: Temp Pulse Resp BP Pulse Ox 36.4 C L 86 20 121/75 98 07/04/19 08:35 07/04/19 10:08 07/04/19 08:35 07/04/19 10:08 07/04/19 09:54 Notes Mental Status: alert / awake / arousable Nausea / Vomiting: adequately controlled Pain: adequately controlled Airway Patency, RR, SpO2: stable & adequate BP & HR: stable & adequate Hydration State: stable & adequate Neuraxial Anesthesia: was administered and sensory block is resolving Anesthetic Complications: no major complications apparent Epidural: Removed without complications and With tip intact
[2019-07-04] MEDS: IBUPROFEN 600 MG TAB PO PRN ×2 (16:01→19:57)
[2019-07-04] MEDS: DOCUSATE SODIUM 100 MG CAP PO SCH (21:03)
--- NOTE | 2019-07-04 23:05 | Medical Student H&P ---
Date of Service July 04, 2019 History of Present Illness Primary Care Provider: Michael Esqueda DO Allergies Allergy/AdvReac Type Severity Reaction Status Date / Time bee venom protein (honey bee) Allergy Severe SHORTNESS Verified 07/04/19 04:50 OF BREATH cat dander Allergy Mild ITCHY EYES Verified 07/04/19 04:50 grass pollen-perennial rye, Allergy Mild RASH Verified 07/04/19 04:50 standar mold Allergy Mild RASH Verified 07/04/19 04:50 pollen extracts Allergy Mild RASH Verified 07/04/19 04:50 dog dander Allergy Rash Verified 07/04/19 04:50 No Known Drug Allergies Allergy Unknown Verified 07/04/19 04:50 Home Medications Home Medications Medication Instructions Recorded Confirmed Type prenat.vits,beatriz,mud-pcuj-igabl 1 tab PO DAILY 03/08/19 07/04/19 History diphenhydramine HCl 1 cap PO DIRECTED 03/22/19 07/04/19 History albuterol sulfate 1 puff INHALATION DIRECTED 06/22/19 07/04/19 History iyrkoxflzdhzr-PY-yuabbmzpalfye 2 tab PO DIRECTED 06/29/19 07/04/19 History Past Med/Surg History Medical History Asthma History of drug overdose Heroin 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 , currently History of group B Streptococcus (GBS) infection History of heroin abuse History of placenta previa History of spontaneous Surgical History S/P cholecystectomy S/P wisdom tooth extraction Family History Grandmother (Maternal) Breast cancer Aunt Ovarian cancer maternal Other Diabetes Heart disease Hypertension Social History (Updated 03/14/19 @ 11:11 by Irina Hernandez) Preferred Language: Belarusian Beliefs That Will Affect Care: None marital status: Single Current Living Situation: Significant Other Other Information That Helps Us Care for You: No Feels Safe at Home: Yes Safety Concerns: Feels Safe At This Time Smoking Status: Current every day smoker Tobacco Type: cigarettes ; Cigarettes Per Day: 1 or 2 sticks ; Hx Alcohol Use: No Hx Substance Use: Yes substance use type: former substance user Last Used Substance Other:: Patient states, has being clean for two years. Results & Data Vital Signs (Past 12 Hours) Vital Signs Temp Pulse Pulse Resp BP BP Pulse Ox 07/04/19 20:02 36.9 C 75 18 119/71 96 07/04/19 15:58 36.7 C 86 18 120/75 97 07/04/19 12:00 37 C 77 18 118/71 97 07/04/19 11:38 36.7 C 20 07/04/19 11:33 76 121/73 07/04/19 11:08 80 20 122/72
[2019-07-05] MEDS: IBUPROFEN 600 MG TAB PO PRN ×4 (01:12→23:54)
--- NOTE | 2019-07-05 06:36 | Obstetrical Progress Note ---
Date of Service July 05, 2019 Assessment & Plan (1) Status post vaginal delivery: Manuela is a 29 yo on PPD 1 after at 39w. - GBS -, Blood Type A+, Rubella immune -Vitals reviewed and WNL (Tmax 37.0) -patient has a history of heroin use; tox screen on admission neg; social se rvice consult placed -patient is doing clinically well discharge instructions reviewed - After discharge will have [address] Sanchez. 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 Subjective Ambulation: ambulating normally Voiding: no voiding problems Passing Gas:: Yes Diet Tolerance:: regular diet Lochia:: Small Feeding Type:: breast feeding Review of Systems Constitutional: no fever, no chills and no sweats Eyes: no worsening vision Respiratory: no cough and no dyspnea Cardiovascular: no chest pain, no palpitations, no edema and no calf pain Gastrointestinal: no nausea and no vomiting Genitourinary: no dysuria and no urinary frequency Neurologic: no headache(s) Physical Exam Constitutional: WD/WN, vitals as above no acute distress Respiratory: normal respiratory effort, lungs clear to auscultation does not use accessory muscles Auscultation: no crackles, no rales, no rhonchi, no wheezes and no pleural rub Cardiovascular: Rate/Rhythm: regular rate and regular rhythm Heart Sounds: normal S1 and normal S2; no gallop, no murmur and no cardiac rub Extremities: no calf tenderness and no pedal edema Gastrointestinal (Abdomen): Inspection/Auscultation: normal bowel sounds; abdomen not distended Percussion/Palpation: abdomen soft Genitourinary: Uterus: fundus firm, palpable 2 cm below the umbilicus Results & Data Vital Signs (Past 12 Hours) Vital Signs Temp Pulse Resp BP Pulse Ox 07/05/19 05:15 36.7 C 96 H 16 129/86 97 07/04/19 23:15 36.4 C L 91 H 16 122/76 97 07/04/19 20:02 36.9 C 75 18 119/71 96 Resident Activity Tracking Resident Involvement: Resident Care Provided Care Provided: OB Delivery
[2019-07-05 06:38] LABS: Hematocrit (blood only) 32.3 % (37-47); Mean Corpuscular Hemoglobin 31.3 pg (25-34); Mean Corpuscular Hgb Conc 34.1 g/dL (32-36); Mean Corpuscular Volume 91.8 fL (80-100); Mean Platelet Volume 11.4 fL (7.4-10.4); Platelet Count 324 K/uL (130-400); RDW Coefficient of Variation 12.9 % (11.5-14.5); RDW Standard Deviation 43.1 fL (36.4-46.3); Red Blood Count 3.52 M/uL (4.2-5.4)
[2019-07-05] MEDS: DOCUSATE SODIUM 100 MG CAP PO SCH ×2 (08:57→20:32)
[2019-07-05] MEDS: PRENATAL VITAMIN 1 TAB PO SCH (08:57)
[2019-07-06 01:07] VITALS: O2SAT 97
--- NOTE | 2019-07-06 06:06 | Obstetrical Progress Note ---
Date of Service July 06, 2019 Assessment & Plan (1) Status post vaginal delivery: Manuela is a 29 yo on PPD 2 after at 39w. - GBS -, Blood Type A+, Rubella immune -Vitals reviewed and WNL (Tmax 37.0) -patient has a history of heroin use; tox screen on admission neg; social se rvice consult placed -patient is doing clinically well discharge instructions reviewed - After discharge will have [address] Sanchez. 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 Discussed with Dr. Flores and agree with findings and plan as documented in the note. Any exceptions or clarifications are listed here: [None] Documented By: Dia Jolley MD, FACOG Subjective Ambulation: ambulating normally Voiding: no voiding problems Passing Gas:: Yes Diet Tolerance:: regular diet Lochia:: Small Feeding Type:: breast feeding Review of Systems Constitutional: no fever, no chills and no sweats Eyes: no worsening vision Respiratory: no cough and no dyspnea Cardiovascular: no chest pain, no palpitations, no edema and no calf pain Gastrointestinal: no nausea and no vomiting Genitourinary: no dysuria and no urinary frequency Neurologic: no headache(s) Physical Exam Constitutional: WD/WN, vitals as above no acute distress Respiratory: normal respiratory effort, lungs clear to auscultation does not use accessory muscles Auscultation: no crackles, no rales, no rhonchi, no wheezes and no pleural rub Cardiovascular: Rate/Rhythm: regular rate and regular rhythm Heart Sounds: normal S1 and normal S2; no gallop, no murmur and no cardiac rub Extremities: no calf tenderness and no pedal edema Gastrointestinal (Abdomen): Inspection/Auscultation: normal bowel sounds; abdomen not distended Percussion/Palpation: abdomen soft Genitourinary: Uterus: fundus firm, palpable 2 cm below the umbilicus Results & Data Vital Signs (Past 12 Hours) Vital Signs Temp Pulse Resp BP Pulse Ox 07/05/19 23:40 36.7 C 93 H 16 128/78 97 Resident Activity Tracking Resident Involvement: Resident Care Provided Care Provided: OB Delivery
[2019-07-06 07:37] LABS: Hematocrit (blood only) 33.4 % (37-47); Hemoglobin 10.9 g/dL (12.0-16.0)
[2019-07-06 08:00] VITALS: BP 118/75; PULSE 80; TEMP 97.7
[2019-07-06] MEDS: DOCUSATE SODIUM 100 MG CAP PO SCH (08:32)
[2019-07-06] MEDS: PRENATAL VITAMIN 1 TAB PO SCH (08:32)
== END 2019-07-06 10:40 | disposition home or self-care (01) | DRG 807 ==
LOC: OPB 03:51 → 4S1 03:53 → 4S2 11:50